=== PATIENT | male | born 1955 | race African-American/Black ===

== ENCOUNTER 2021-06-14 11:35 | Emergency (ER) | payer MEDICARE ==
[~2021-06-14] VITALS: Ht 170.2 cm; Wt 65.8 kg
--- NOTE | ~2021-06-14 | EMS ---
[place] [address] EMS Patient Care Report Name: CHAVA JARQUIN Room #: PRE M.R.#: [id number] Admission: Attend Phys: Discharge: Date of : 51 Report #: [id number] THIS REPORT FOR: //name// Report Transmitted: 06/14/2021 11:42 EMS Care Summary [place], [place]/[facility] Incident [id number] @ 06/14/2021 11:07 Incident Location [address] [place] [address] Patient CHAVA JARQUIN Male, 65 Years 1955 Patient Address [address] [place] [address] Patient History Hypertension (HTN), Patient Allergies No known allergies, Chief Complaint CP/SOB Disposition Transported No Lights/[place] Dispatch Reason Chest Pain (Non-Traumatic) Transported To [facility] Narrative pt found seated in employee area of [employer]. 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 he is asymptomatic on arrival. he denies any similar, prior episodes. he req eval at [facility]. pt seats self on cot, tx as listed in flow chart. pt 12 lead shows NSR w/ RBBB. pt denies any past cardiac hx or abnormality. transport w/o change. report to RN [place] 12. [place] [address] EMS Patient Care Report Name: CHAVA JARQUIN Room #: PRE M.R.#: [id number] Admission: Attend Phys: Discharge: Date of : 51 Report #: [id number] Initial Vitals @11:21P: 65,SpO2: 99, @11:16P: 76,R: 18,BP: 142/72,Pain: 0/10,GCS: 15,CO: 0,SpO2: 100,Revised Trauma: 12, Assessments @11:13MENTAL:No Abnormalities,SKIN:No Abnormalities,HEENT:Head/Face: No Abnormalities,LUNG SOUNDS:ABDOMEN:PELVIS//GI:EXTREMITIES:PULSE:Radial: 2+ Normal,NEURO:No Abnormalities, Impression Chest Pain / Discomfort Procedures @11:21 12-Lead ECG Response: UnchangedSucceeded @11:13 ALS Assessment Response: Unchanged @11:14 Stretcher Response: Unchanged @11:23 IV Therapy - Saline Lock 10cc (20 ga) Site: Antecubital-Left Response: UnchangedSucceeded @11:18 3-Lead ECG Response: Unchanged Timeline 11:05,Call Received 11:05,Dispatch Notified 11:07,Dispatched 11:08,En Route 11:12,On Scene 11:13,At Patient 11:13,ALS Assessment,Response: Unchanged 11:14,Stretcher,Response: Unchanged 11:16,BP: 142/72 M,PULSE: 76,RR: 18 R,SPO2: 100 Ox,ETCO2: ,BG: ,PAIN: 0,GCS: 15, 11:18,3-Lead ECG,Response: Unchanged 11:21,12-Lead ECG,Response: UnchangedSucceeded, 11:21,BP: / M,PULSE: 65,RR: R,SPO2: 99 Ox,ETCO2: ,BG: ,PAIN: ,GCS: , 11:23,IV Therapy - Saline Lock 10cc 20 ga Site: Antecubital-Left,Response: UnchangedSucceeded, 11:27,Depart Scene 11:30,At Destination 11:53,Call Closed Disclaimer v1.1 Copyright 2021 [employer] This EMS Care Summary contains data elements from the applicable legal record [facility] [address] [place] [address] EMS Patient Care Report Name: CHAVA JARQUIN Room #: PRE M.R.#: [id number] Admission: Attend Phys: Discharge: Date of : 51 Report #: [id number] (which may be displayed differently). It is designed to provide pertinent information for the following purposes: continuity of care, clinical quality, and state data reporting. The complete legal record is available to ED staff and administrators of the receiving hospital in [employer]'s Patient Tracker. All data is provided "as is."
--- NOTE | ~2021-06-14 | EMS ---
[place] [address] EMS Patient Care Report Name: CHAVA JARQUIN Room #: DEP Emery#: [id number] Admission: 06/14/21 Attend Phys: Discharge: 06/14/21 Date of : 51 Report #: [id number] THIS REPORT FOR: //name// Report Transmitted: 06/15/2021 07:46 EMS Care Summary [place], [place]/[facility] Incident [id number] @ 06/14/2021 11:07 Incident Location [address] [place] [address] Patient CHAVA JARQUIN Male, 65 Years 1955 Patient Address [address] [place] [address] Patient History Hypertension (HTN), Patient Allergies No known allergies, Chief Complaint CP/SOB Disposition Transported No Lights/[place] Dispatch Reason Chest Pain (Non-Traumatic) Transported To [facility] Narrative pt found seated in employee area of [employer]. 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 he is asymptomatic on arrival. he denies any similar, prior episodes. he req eval at [facility]. pt seats self on cot, tx as listed in flow chart. pt 12 lead shows NSR w/ RBBB. pt denies any past cardiac hx or abnormality. transport w/o change. report to RN rm 12[place] [address] EMS Patient Care Report Name: CHAVA JARQUIN Room #: DEP MKenneth#: [id number] Admission: 06/14/21 Attend Phys: Discharge: 06/14/21 Date of : 51 Report #: [id number] Initial Vitals @11:21P: 65,SpO2: 99, @11:16P: 76,R: 18,BP: 142/72,Pain: 0/10,GCS: 15,CO: 0,SpO2: 100,Revised Trauma: 12, Assessments @11:13MENTAL:No Abnormalities,SKIN:No Abnormalities,HEENT:Head/Face: No Abnormalities,LUNG SOUNDS:ABDOMEN:PELVIS//GI:EXTREMITIES:PULSE:Radial: 2+ Normal,NEURO:No Abnormalities, Impression Chest Pain / Discomfort Procedures @11:21 12-Lead ECG Response: UnchangedSucceeded @11:13 ALS Assessment Response: Unchanged @11:14 Stretcher Response: Unchanged @11:23 IV Therapy - Saline Lock 10cc (20 ga) Site: Antecubital-Left Response: UnchangedSucceeded @11:18 3-Lead ECG Response: Unchanged Timeline 11:05,Call Received 11:05,Dispatch Notified 11:07,Dispatched 11:08,En Route 11:12,On Scene 11:13,At Patient 11:13,ALS Assessment,Response: Unchanged 11:14,Stretcher,Response: Unchanged 11:16,BP: 142/72 M,PULSE: 76,RR: 18 R,SPO2: 100 Ox,ETCO2: ,BG: ,PAIN: 0,GCS: 15, 11:18,3-Lead ECG,Response: Unchanged 11:21,12-Lead ECG,Response: UnchangedSucceeded, 11:21,BP: / M,PULSE: 65,RR: R,SPO2: 99 Ox,ETCO2: ,BG: ,PAIN: ,GCS: , 11:23,IV Therapy - Saline Lock 10cc 20 ga Site: Antecubital-Left,Response: UnchangedSucceeded, 11:27,Depart Scene 11:30,At Destination 11:53,Call Closed Disclaimer v1.1 Copyright 2021 [employer] This EMS Care Summary contains data elements from the applicable legal record [facility] [address] [place] [address] EMS Patient Care Report Name: CHAVA JARQUIN [facility] [id number] Admission: 06/14/21 Attend Phys: Discharge: 06/14/21 Date of : 51 Report #: [id number] (which may be displayed differently). It is designed to provide pertinent information for the following purposes: continuity of care, clinical quality, and state data reporting. The complete legal record is available to ED staff and administrators of the receiving hospital in [employer] Patient Tracker. All data is provided "as is."
[2021-06-14 12:26] LABS: ABSOLUTE NEUTROPHILS 4.6 thou/uL (1.4-8.2); BASOPHILS 0.6 % (0.0-2.0); EOSINOPHILS 5.2 % (0.0-3.0); HEMATOCRIT 33.6 % (42.0-52.0); HEMOGLOBIN 11.7 gm/dL (14.0-18.0); LYMPHOCYTES 25.1 % (24.0-44.0); MCH 32.4 pg (26.0-34.0); MCHC 34.8 g/dL (28.0-37.0); MONOCYTES 9.4 % (1.0-8.0); PLATELET COUNT 279 thou/uL (150-400); POLYS 59.7 % (36.0-66.0); RBC 3.62 mil/uL (4.50-6.00); RDW 13.2 % (10.5-14.5); WBC 7.8 thou/uL (4.0-11.0)
[2021-06-14 12:36] LABS: CALCIUM 9.5 mg/dL (8.5-10.1); CREATININE 1.3 mg/dL (0.7-1.3); POTASSIUM 4.4 mmol/L (3.5-5.1)
[2021-06-14 12:52] LABS: ALBUMIN 4.3 g/dL (3.4-5.0); TOTAL BILIRUBIN 0.8 mg/dL (0.2-1.0); TOTAL PROTEIN 8.1 g/dL (6.4-8.2)
[2021-06-14 14:24] VITALS: BP 109/55
--- NOTE | 2021-06-15 07:09 | EKG ---
[address] [address] ELECTROCARDIOGRAM REPORT Name: CHAVA JARQUIN Room #: DEP PHILIP Land#: [id number] Admission: 06/14/21 Attend Phys: Discharge: 06/14/21 Date of : 51 Report #: [id number] [facility] ED Test Date: 2021-06-14 Test Time: 11:38:08 Pat Name: CHAVA JARQUIN Department: Room: Gender: M Office Assistant Receptionist: TJ : 1955 Requested By: Maria Teresa Sousa Order Number: [id number] MD: Morro Iverson Measurements Intervals [place] Rate: 69 P: -45 [place]: 138 QRS: -77 QRSD: 135 T: 48 QT: 426 QTc: 457 Interpretive Statements Sinus rhythm RBBB No previous ECG available for comparison Electronically Signed On 06-15-2021 7:08:58 PROVIDER RELATIONS MANAGER by Morro Iverson [email or web address] <ELECTRONICALLY SIGNED> By: Morro Iverson MD, [facility] 06/15/21 [id number] Morro Iverson MD, FACC /EPI
== END 2021-06-14 14:38 | disposition home or self-care (01) ==
LOC: ER 11:35
PROVIDERS: Physician Assistant
DX: R07.89 Other chest pain (principal); Z20.822 Contact with and (suspected) exposure to COVID-19; R06.02 Shortness of breath; I10 Essential (primary) hypertension; E78.5 Hyperlipidemia, unspecified; Z86.73 Personal history of transient ischemic attack (TIA), and cerebral infarction without residual deficits; Z85.46 Personal history of malignant neoplasm of prostate